=== PATIENT | male | born 1965 | race Two or more races ===

== ENCOUNTER 2018-10-22 06:14 | Emergency (ER) | payer MEDICARE ==
[~2018-10-22] VITALS: Ht 167.6 cm; Wt 77.1 kg
[2018-10-22] MEDS ORDERED: ACETAMINOPHEN325 M1 ORAL (06:43)
[2018-10-22] MEDS ORDERED: MILK OF MA2400 MG/10 ORAL (06:43)
[2018-10-22] MEDS ORDERED: COLACE100 MG ORAL (06:43)
[2018-10-22] MEDS ORDERED: LYRICA75 M1 ORAL (06:43)
[2018-10-22] MEDS ORDERED: BACLOFEN10 MG ORAL (06:43)
[2018-10-22] MEDS ORDERED: TRAZODONE HCL100 MG ORAL (06:43)
[2018-10-22] MEDS ORDERED: ASPIRIN EC325 MG ORAL (06:43)
[2018-10-22] MEDS ORDERED: TRIUMEQ 600-501 EACH PO (06:43)
[2018-10-22] MEDS ORDERED: OXYBUTYNIN CHLOR5 M1 ORAL (06:43)
[2018-10-22] MEDS ORDERED: SODIUM BICARBO650 MG PO (06:43)
[2018-10-22] MEDS ORDERED: SEROQUEL200 MG ORAL (06:43)
[2018-10-22 06:46] VITALS: BP 118/81
--- NOTE | 2018-10-22 06:48 | NUR ---
ER Nurse Note: Pt ARYAN from [facility] c/o a fall from bed at 0200. Per EMS, pt was asleep, rolled and fell on face. No trauma, no LOC. Pt a&ox4, VSS. Pupils round and reactive to light. No skin breakdown. Pt stated pain 8/10, throbbing sensation on nose from fall. ERMD at pt side; mor continue to [facility].
--- NOTE | 2018-10-22 06:53 | Emergency Room Report ---
History of Present Illness General Chief Complaint: Multiple Trauma/Fall Source: Patient Present Illness HPI Patient presents with reports of fall and trauma to his nasal bridge and forehead Patient reports that he was sleeping in his bed when he rolled to the side and fell to the ground he did have some bleeding from the nose Initially which has stopped also complains of continued pain to the forehead he cannot report if the Had a loss of consciousness or not as he had the fall essentially during his sleep denies any neck pain denies any photophobia denies any focal weakness This occurred approximately 2:30 in the morning and the pain has persisted Allergies: Coded Allergies: HYDROCODONE (Verified Allergy, Unknown, 10/22/18) MORPHINE (Verified Allergy, Unknown, 10/22/18) Uncoded Allergies: PENICILLIN (Allergy, Unknown, 10/22/18) Patient History Past Medical History: see triage record Pertinent Family History: none Reviewed Nursing Documentation: PMH: Agreed; PSxH: Agreed Nursing Documentation-PMH Hx Gastrointestinal Problems: Yes - acidosis, diff walking, muscle wasting and atrophy, History Of Psychiatric Problem: Yes - paranoid schizophrenia, major depressive disorder Review of Systems All Other Systems: negative except mentioned in HPI Physical Exam Vital Signs Date Time Temp Pulse Resp B/P (MAP) Pulse Ox O2 Delivery O2 Flow Rate FiO2 10/22/18 06:17 98.1 70 14 118/81 93 Room Air Sp02 EP Interpretation: reviewed, normal General Appearance: well appearing, no apparent distress Head: normocephalic, atraumatic Eyes: bilateral eye PERRL, bilateral eye EOMI ENT: hearing grossly normal, normal pharynx, TMs + canals normal, uvula midline , other - No obvious signs of ecchymosis or bleeding patient reports that he has history of deviated septum Neck: full range of motion, supple, no meningismus, no bony tend Respiratory: lungs clear, normal breath sounds, no rhonchi, no respiratory distress, no retraction, no accessory muscle use Cardiovascular #1: normal peripheral pulses, regular rate, rhythm, no edema, no gallop, no JVD, no murmur Gastrointestinal: normal bowel sounds, non tender, soft, no mass, no organomegaly, non-distended, no guarding, no hernia, no pulsatile mass, no rebound Genitourinary: no CVA tenderness Musculoskeletal: normal inspection Neurologic: oriented x3, responsive, motor strength/tone normal, sensory intact Psychiatric: mood/affect normal Skin: normal color, no rash, warm/dry, palpation normal Lymphatic: normal inspection, no adenopathy Medical Decision Making Diagnostic Impression: Primary Impression: Contusion Additional Impression: Head injury ER Course Given the patient's history and presentation imaging study was obtained patient remains hemodynamically stable On reevaluation feels significantly improved CT imaging does not reveal any acute pathology and the patient is stable for transfer back to the nursing facility for close follow-up CT/MRI/US Diagnostic Results CT/MRI/US Diagnostic Results : Impression CT head IMPRESSION: No acute intracranial hemorrhage, mass effect or midline shift. Mild ventriculomegaly. Mild small vessel ischemic disease. Small chronic right frontoparietal cortical infarct. CT facialIMPRESSION: No evidence of acute facial fracture. Last Vital Signs Date Time Temp Pulse Resp B/P (MAP) Pulse Ox O2 Delivery O2 Flow Rate FiO2 10/22/18 06:46 98.1 74 14 118/81 93 Room Air Status: improved Disposition: XFER SNF Condition: Improved Additional Instructions: Patient is provided with the discharge instructions notified to follow up with primary doctor in the next 2-3 days otherwise return to the er with any worsening symptoms. Please note that this report is being documented using [employer] technology. This can lead to erroneous entry secondary to incorrect interpretation by the dictating instrument. Lisa Pierre DO Oct 22, 2018 06:53
--- NOTE | 2018-10-22 07:18 | NUR ---
ER Nurse Note: Gave report to RYAN English.
--- NOTE | 2018-10-22 07:20 | NUR ---
ED Nurse Note: Patient taken down for CT.
--- NOTE | 2018-10-22 07:53 | Diagnostic Imaging Report ---
EXAM: CT Head Without Intravenous Contrast. CLINICAL HISTORY: TRAUMA TECHNIQUE: Axial computed tomography images of the head/brain without intravenous contrast. CTDI is 70.5 mGy and DLP is 1418 mGy-cm. One or more of the following dose reduction techniques were used: automated exposure control, adjustment of the mA and/or kV according to patient size, use of iterative reconstruction technique. COMPARISON: No relevant prior studies available. FINDINGS: Brain: No evidence of acute intracranial hemorrhage. No mass effect or midline shift. Chronic right frontoparietal cortical infarct. Mild small vessel ischemic disease.. Ventricles: Mild ventriculomegaly, with the third ventricle measuring up to 15 mm in diameter. Findings may be due to central parenchymal volume loss or mild hydrocephalus. Bones: No acute fracture. Sinuses: No fluid level seen within the paranasal sinuses. Mild mucosal thickening seen within bilateral maxillary, sphenoid and ethmoid sinuses. Mastoid air cells: Unremarkable as visualized. No mastoid effusion. IMPRESSION: No acute intracranial hemorrhage, mass effect or midline shift. Mild ventriculomegaly. Mild small vessel ischemic disease. Small chronic right frontoparietal cortical infarct.
--- NOTE | 2018-10-22 08:08 | Diagnostic Imaging Report ---
EXAM: CT Maxillofacial Without Intravenous Contrast. CLINICAL HISTORY: TRAUMA TECHNIQUE: Axial computed tomography images of the face without intravenous contrast. CTDI is 28.3 mGy and DLP is 529 mGy-cm. One or more of the following dose reduction techniques were used: automated exposure control, adjustment of the mA and/or kV according to patient size, use of iterative reconstruction technique. COMPARISON: No relevant prior studies available. FINDINGS: Bones: No acute fracture. Extracranial soft tissues: Unremarkable. Sinuses: Mild mucosal thickening seen within bilateral maxillary, frontal, ethmoid and sphenoid sinuses. No fluid levels or blood products seen within the nasal sinuses. Orbits: The ocular globes, extraocular muscles and optic nerves are symmetric. No evidence of intraorbital hemorrhage. IMPRESSION: No evidence of acute facial fracture.
[2018-10-22 08:38] VITALS: BP 111/69
--- NOTE | 2018-10-22 08:42 | NUR ---
ED Nurse Note: Patient cleared for discharge per ERMD. A/o X4, Patient given prescriptions and discharge instructions; verbalized understanding. ID band removed. Patient transferred to ambulance [facility], taken by [facility]. report given to Gaye NICE ([place]) at [place].
--- NOTE | 2018-10-22 08:44 | NUR ---
ED Nurse Note: called [facility] at [phone]
== END 2018-10-22 08:40 | disposition home or self-care (01) ==
LOC: EDBD 06:14 → EMR 07:01
DX: S09.90XA Unspecified injury of head, initial encounter (principal); T14.8XXA Other injury of unspecified body region, initial encounter; W06.XXXA Fall from bed, initial encounter; Y92.9 Unspecified place or not applicable; Z88.6 Allergy status to analgesic agent; Z88.0 Allergy status to penicillin; F32.9 Major depressive disorder, single episode, unspecified; F20.9 Schizophrenia, unspecified
CPT/HCPCS: 70450; 70486; 99284